=== PATIENT | male | born 1965 | race Caucasian/White ===

== ENCOUNTER 2016-08-28 20:18 | Emergency (ER) | payer BC, OTHER ==
[~2016-08-28] VITALS: Ht 180.3 cm; Wt 72.0 kg
[2016-08-28 20:26] VITALS: BP 155/93; PULSE 80; RESP 18; TEMP 98.8; O2SAT 99
--- NOTE | 2016-08-28 21:36 | PD ---
HPI Chief Complaint: Edema Time Seen by Provider: 21:29 Travel History International Travel<30 days: No Contact w/Intl Traveler<30days: No Traveled to known affect area: No History of Present Illness HPI Patient 50-year-old male presents with right ankle swelling. Patient states that he recently took a trip to [facility] and has been on his feet quite a lot recently but after he got back is been doing nothing but laying on the couch. He states that he is here because some or swelling in the past and his mother let the diagnosis of DVT. Patient has not had a DVT himself in the past. Denies any fever denies any history of heart kidney lung or liver problems. Patient denies any history of trauma to his ankle other than walking on it [place]. He denies a history of cancer denies a history of shortness of breath PFSH Past Medical History High Cholesterol: Yes Diminished Hearing: No Hypertension: Yes Kidney Stones: Yes (8 YEARS AGO) Social History Alcohol Use: Yes (DRINK/WEEK) Tobacco Use: No Substance Use: No Allergies-Medications (Allergen,Severity, Reaction): Coded Allergies: No Known Allergies (Verified , 08/28/16) Reported Meds & Prescriptions Reported Meds & Active Scripts Active No Active Prescriptions or Reported Medications Review of Systems Except as stated in HPI: all other systems reviewed are Neg Physical Exam Narrative GENERAL: Well-nourished, well-developed patient. SKIN: No erythema no rash. HEAD: Normocephalic. EYES: No scleral icterus. No injection or drainage. NECK: Supple, trachea midline. No JVD or lymphadenopathy. CARDIOVASCULAR: Regular rate and rhythm without murmurs, gallops, or rubs. RESPIRATORY: Breath sounds equal bilaterally. No accessory muscle use. GASTROINTESTINAL: Abdomen soft, non-tender, nondistended. MUSCULOSKELETAL: No cyanosis, there is minimal edema of the anterior ankle on the right side as well as lateral malleolus. There is no tenderness of the ankle. There is no tenderness at the knee no tenderness of the foot. Homans sign is negative. No cordlike structures felt. Full nontender range of motion was exhibited in all lower extremity joints, he ambulated with a narrow gait without pain.. BACK: Nontender without obvious deformity. No CVA tenderness. Data Data Last Documented VS Vital Signs Date Time Temp Pulse Resp B/P Pulse Ox O2 Delivery O2 Flow Rate FiO2 08/28/16 23:11 82 144/72 99 08/28/16 20:26 98.8 18 Orders Us Leg Venous Doppler Bilat (08/28/16 21:29) MDM Medical Decision Making Medical Screen Exam Complete: Yes Emergency Medical Condition: Yes Differential Diagnosis Fracture excluded by [place] ankle rules, CHF highly unlikely, acute renal failure highly unlikely, acute liver failure highly unlikely, dependent edema, DVT seems unlikely. Narrative Course Last 24 hours Impressions Lower Extremity Ultrasound 08/28/162128 Signed Impressions: Service Date/Time: Sunday, August 28, 2016 21:42 - CONCLUSION: No DVT in either lower extremity. Sukhdeep Fernandez MD Discuss results with the patient and symptomatically management. Discussed need follow-up with a primary care physician. There is no indication for further emergent workup at this time. He stable for discharge. Diagnosis Primary Impression: Ankle edema Scripts No Active Prescriptions or Reported Meds Disposition: 01 DISCHARGE HOME Condition: Stable Reza Suarez MD August 28, 2016 21:36
--- NOTE | 2016-08-28 22:39 | RADHPO ---
EXAM DATE/TIME: 08/28/2016 21:42 [facility] COMPARISON: No previous studies available for comparison. INDICATIONS : Bilateral leg swelling. MEDICAL HISTORY : Hypercholesterolemia. Hypertension. Renal calculi. SURGICAL HISTORY : None. ENCOUNTER: Initial ACUITY: 1 day PAIN SCORE: 1/10 LOCATION: Bilateral legs. TECHNIQUE: Venous ultrasound of the left and right leg was performed from the inguinal ligament to the proximal calf. Real-time, color Doppler and spectral tracing, compression and augmentation techniques were us ed. FINDINGS: RIGHT LEG: There is normal compressibility of the deep venous system from the inguinal region to the proximal ca lf. No echogenic clot is seen in the lumen of the common femoral, femoral, popliteal, and posterior tibial veins. There is a normal response of the venous system to proximal and distal augmentation an d respiration. LEFT LEG: There is normal compressibility of the deep venous system from the inguinal region to the proximal ca lf. No echogenic clot is seen in the lumen of the common femoral, femoral, popliteal, and posterior tibial veins. There is a normal response of the venous system to proximal and distal augmentation an d respiration. CONCLUSION: No DVT in either lower extremity. Sukhdeep Fernandez MD on August 28, 2016 at 22:37 Board Certified Radiologist. This report was verified electronically.
[2016-08-28 23:11] VITALS: BP 144/72
== END 2016-08-28 23:13 | disposition home or self-care (01) ==
LOC: PHED 20:18
DX: R60.9 Edema, unspecified (principal); E78.00 Pure hypercholesterolemia, unspecified; I10 Essential (primary) hypertension
CPT/HCPCS: 93970

== ENCOUNTER 2017-01-19 08:47 | Emergency (ER) | payer OTHER ==
[~2017-01-19] VITALS: Ht 180.3 cm; Wt 70.1 kg
[2017-01-19 08:50] VITALS: BP 169/95; PULSE 70; RESP 16; TEMP 98.6; O2SAT 98
--- NOTE | 2017-01-19 09:11 | PD ---
HPI Chief Complaint: Flank/Kidney Pain Time Seen by Provider: 09:02 Travel History International Travel<30 days: No Contact w/Intl Traveler<30days: No Traveled to known affect area: No History of Present Illness HPI This 51-year-old male is complaining of left flank pain. The pain started Sunday night, it is now Sunday morning. He has been quite severe at times. It does come and go. He has a history of kidney stones says the pain is similar to the pain has kidney stones. His been confined to the left flank. There is no testicular pain. He has not had dysuria. He took some Advil with minimal response. He also tried some tramadol which helped a little bit. He says he had kidney stones about 15 years ago which he passed uneventfully [facility] Past Medical History High Cholesterol: Yes Diminished Hearing: No Hypertension: Yes Kidney Stones: Yes Immunizations Current: Yes Past Surgical History Surgical History: No Previous Surgery Social History Alcohol Use: Yes (RARE) Tobacco Use: No (FORMER) Substance Use: No Allergies-Medications (Allergen,Severity, Reaction): Coded Allergies: No Known Allergies (Verified , 01/19/17) Reported Meds & Prescriptions Reported Meds & Active Scripts Active No Active Prescriptions or Reported Medications Review of Systems General / Constitutional: No: Fever, Chills Eyes: No: Diploplia, Blurred Vision HENT: No: Headaches, Vertigo Cardiovascular: No: Chest Pain or Discomfort, Palpitations Respiratory: No: Cough, Shortness of Breath Gastrointestinal: No: Nausea, Vomiting, Diarrhea Genitourinary: Positive: Flank Pain, No: Hematuria Musculoskeletal: No: Myalgias, Arthralgias Skin: No Rash, No Itching Neurologic: No: Weakness Endocrine: No: Heat Intolerance, Cold Intolerance Hematologic/Lymphatic: No: Easy Bruising Physical Exam Narrative GENERAL: Well-developed male. He is uncomfortable with pain SKIN: Focused skin assessment warm/dry. HEAD: Atraumatic. Normocephalic. EYES: Pupils equal and round. No scleral icterus. No injection or drainage. ENT: No nasal bleeding or discharge. Mucous membranes pink and moist. NECK: Trachea midline. No JVD. CARDIOVASCULAR: Regular rate and rhythm. No murmur appreciated. RESPIRATORY: No accessory muscle use. Clear to auscultation. Breath sounds equal bilaterally. GASTROINTESTINAL: Abdomen soft, non-tender, nondistended. Hepatic and splenic margins not palpable. There is some left CVA tenderness MUSCULOSKELETAL: No obvious deformities. No clubbing. No cyanosis. No edema. NEUROLOGICAL: Awake and alert. No obvious cranial nerve deficits. Motor grossly within normal limits. Normal speech. PSYCHIATRIC: Appropriate mood and affect; insight and judgment normal. Data Data Last Documented VS Vital Signs Date Time Temp Pulse Resp B/P (MAP) Pulse Ox O2 Delivery O2 Flow Rate FiO2 01/19/17 10:11 16 01/19/17 08:50 98.6 70 169/95 (119) 98 Orders Orders Basic Metabolic Panel (Bmp) (01/19/17 09:07) Complete Blood Count With Diff (01/19/17 09:07) Urinalysis - C+S If Indicated (01/19/17 09:07) Ct Abd/Pel W/O Iv Contrast (01/19/17 09:07) Ketorolac Inj (Toradol Inj) (01/19/17 09:15) Ondansetron Inj (Zofran Inj) (01/19/17 09:15) Sodium Chloride 0.9% Flush (Ns Flush) (01/19/17 09:15) Hydromorphone Pf Inj (Dilaudid Pf Inj) (01/19/17 09:15) Sodium Chlor 0.9% 1000 Ml Inj (Ns 1000 M (01/19/17 09:15) Labs Laboratory Tests Test 01/19/17 09:10 01/19/17 09:20 White Blood Count 7.8 TH/MM3 Red Blood Count 5.57 MIL/MM3 Hemoglobin 16.3 GM/DL Hematocrit 49.2 % Mean Corpuscular Volume 88.2 FL Mean Corpuscular Hemoglobin 29.2 PG Mean Corpuscular Hemoglobin Concent 33.1 % Red Cell Distribution Width 12.6 % Platelet Count 337 TH/MM3 Mean Platelet Volume 7.6 FL Neutrophils (%) (Auto) 67.6 % Lymphocytes (%) (Auto) 21.8 % Monocytes (%) (Auto) 6.5 % Eosinophils (%) (Auto) 2.0 % Basophils (%) (Auto) 2.1 % Neutrophils # (Auto) 5.2 TH/MM3 Lymphocytes # (Auto) 1.7 TH/MM3 Monocytes # (Auto) 0.5 TH/MM3 Eosinophils # (Auto) 0.2 TH/MM3 Basophils # (Auto) 0.2 TH/MM3 CBC Comment DIFF FINAL Differential Comment Blood Urea Nitrogen 12 MG/DL Creatinine 0.95 MG/DL Random Glucose 108 MG/DL Calcium Level 9.5 MG/DL Sodium Level 135 MEQ/L Potassium Level 3.8 MEQ/L Chloride Level 100 MEQ/L Carbon Dioxide Level 27.2 MEQ/L Anion Gap 8 MEQ/L Estimat Glomerular Filtration Rate 84 ML/MIN Urine Collection Type CLEAN CATCH Urine Color YELLOW Urine Turbidity CLEAR Urine pH 6.0 Urine Specific [place] 1.014 Urine Protein NEG mg/dL Urine Glucose (UA) NEG mg/dL Urine Ketones NEG mg/dL Urine Occult Blood LARGE Urine Nitrite NEG Urine Bilirubin NEG Urine Leukocyte Esterase NEG Urine RBC 25-49 /hpf Urine WBC 0-2 /hpf Urine Squamous Epithelial Cells 0-5 /hpf Microscopic Urinalysis Comment CULT NOT INDICATED Urine Collection Time 09:20 MDM Medical Decision Making Medical Screen Exam Complete: Yes Emergency Medical Condition: Yes Medical Record Reviewed: Yes Differential Diagnosis Differential includes renal colic, musculoskeletal pain, UTI Narrative Course Urinalysis does show microscopic hematuria. CT scan shows a 4 x 7 millimeters stone in the left mid ureter with obstruction. Patient was given a milligram Dilaudid IV and Toradol and had good relief of his pain. He'll be released with prescription for Percocet and Flomax. He is to strain all urine and follow -up with urology if the stone does not pass Diagnosis Primary Impression: Left ureteral calculus Scripts Tamsulosin (Flomax) 0.4 Mg Cap 0.4 MG PO HS for Manage Prostate Problems for 14 Days, #30 CAP 0 Refills Prov: Dm Mario MD 01/19/17 Oxycodone-Acetaminophen (Percocet) 10-325 mg Tab 1 TAB PO Q4H Y for PAIN, #20 TAB 0 Refills Prov: Dm Mario MD 01/19/17 Disposition: 01 DISCHARGE HOME Condition: Stable Dm Mario MD Jan 19, 2017 09:11
[2017-01-19] MEDS ORDERED: KETOROLAC TROMETHAMINE 30 MG/ML (IVP) VIAL IVP ONE (09:15)
[2017-01-19] MEDS ORDERED: SODIUM CHLOR 0.9% 1000 ML INJ 1,000 ML IV ONE (09:15)
[2017-01-19] MEDS ORDERED: ONDANSETRON HCL 4 MG/2 ML VIAL IVP ONE (09:15)
[2017-01-19] MEDS ORDERED: SODIUM CHLORIDE 0.9% FLUSH 10 ML FLUSH IVF PRN (09:15)
[2017-01-19] MEDS ORDERED: HYDROmorphone HCL PF 1 MG/ML VIAL IVS ONE (09:15)
[2017-01-19 09:29] LABS: AUTOMATED NEUTROPHIL # 5.2 TH/MM3 (1.8-7.7); BASOPHIL # 0.2 TH/MM3 (0-0.2); BASOPHIL % 2.1 % (0.0-2.0); EOSINOPHIL # 0.2 TH/MM3 (0-0.4); HEMATOCRIT 49.2 % (39.0-51.0); HEMO FLAGS DIFF FINAL; LYMPH % 21.8 % (9.0-44.0); LYMPHOCYTE # 1.7 TH/MM3 (1.0-4.8); MEAN CELL VOLUME 88.2 FL (80.0-100.0); MEAN CORPUSCULAR HEMOGLOBIN 29.2 PG (27.0-34.0); MEAN CORPUSCULAR HGB CONC 33.1 % (32.0-36.0); MONO % 6.5 % (0.0-8.0); NEUT % 67.6 % (16.0-70.0); PLATELET COUNT 337 TH/MM3 (150-450); RED BLOOD COUNT 5.57 MIL/MM3 (4.50-5.90); RED CELL DISTRIBUTION WIDTH 12.6 % (11.6-17.2); WHITE BLOOD COUNT 7.8 TH/MM3 (4.0-11.0)
[2017-01-19 09:30] VITALS: BP 150/95; PULSE 75; RESP 16; O2SAT 97
[2017-01-19 09:33] LABS: BLOOD, URINE LARGE (NEG); GLUCOSE,URINE NEG (NEG); KETONE, URINE NEG (NEG); NITRITE,URINE NEG (NEG)
[2017-01-19 09:40] LABS: METHOD OF COLLECTION CLEAN CATCH; URINE COLOR YELLOW (YELLW/STRAW)
[2017-01-19 09:41] LABS: COMMENT (UR) CULT NOT INDICATED; CULTURE IF INDICATED CULT NOT INDICATED; SQUAMOUS EPITHELIAL CELL URINE 0-5 /hpf (0-5); WBC, URINE 0-2 /hpf (0-5)
[2017-01-19 09:52] LABS: BICARBONATE 27.2 MEQ/L (21.0-32.0)
[2017-01-19 09:56] LABS: POTASSIUM 3.8 MEQ/L (3.5-5.1)
--- NOTE | 2017-01-19 10:01 | RADRPT ---
EXAM DATE/TIME: 01/19/2017 09:42 [facility] COMPARISON: No previous studies available for comparison. INDICATIONS : Left flank pain. ORAL CONTRAST: No oral contrast ingested. RADIATION DOSE: 8.68 CTDIvol (mGy) MEDICAL HISTORY : Hypercholesterolemia. Hypertension. Renal calculi. SURGICAL HISTORY : None. ENCOUNTER: Initial ACUITY: 3 days PAIN SCALE: 9/10 LOCATION: Left flank TECHNIQUE: Volumetric scanning of the abdomen and pelvis was performed. Using automated exposure control and ad justment of the mA and/or kV according to patient size, radiation dose was kept as low as reasonably achievable to obtain optimal diagnostic quality images. DICOM format image data is available electro nically for review and comparison. FINDINGS: LOWER LUNGS: The visualized lower lungs are clear. LIVER: Homogeneous density without lesion. There is no dilation of the biliary tree. No calcified gallston es. SPLEEN: Normal size without lesion. PANCREAS: Within normal limits. KIDNEYS: [id number] left-sided hydronephrosis and hydroureter with a 4 x 7 mm calcified calculus noted i n the mid left ureter. No additional radiopaque renal calculi are noted. Right kidney is within raghu l limits. ADRENAL GLANDS: Within normal limits. VASCULAR: There is no aortic aneurysm. BOWEL/MESENTERY: Mild to moderate sigmoid diverticulosis without definitive inflammatory change to suggest diverticuli tis. Bowel is otherwise unremarkable. No evidence for obstruction. No free air or free fluid. ABDOMINAL WALL: Within normal limits. RETROPERITONEUM: There is no lymphadenopathy. BLADDER: Mildly distended. No radiopaque bladder calculi. REPRODUCTIVE: Within normal limits. INGUINAL: There is no lymphadenopathy or hernia. MUSCULOSKELETAL: Within normal limits for patient age. CONCLUSION: 1. 4 x 7 mm calcified calculus in the mid left ureter with resultant mild to moderate left-sided hydr oureteronephrosis. 2. Sigmoid diverticulosis. Masood Dean MD on January 19, 2017 at 9:55 Board Certified Radiologist. This report was verified electronically.
[2017-01-19 10:05] VITALS: BP 127/81; PULSE 62; RESP 16; O2SAT 97
[2017-01-19 10:11] VITALS: RESP 16
[2017-01-19] MEDS ORDERED: TAMS5CAP PO (10:17)
[2017-01-19] MEDS ORDERED: PERC10TA27 PO (10:17)
== END 2017-01-19 10:38 | disposition home or self-care (01) ==
LOC: PHED 08:47
DX: N13.2 Hydronephrosis with renal and ureteral calculous obstruction (principal); K57.30 Diverticulosis of large intestine without perforation or abscess without bleeding; E78.00 Pure hypercholesterolemia, unspecified; I10 Essential (primary) hypertension; Z87.442 Personal history of urinary calculi; Z87.891 Personal history of nicotine dependence
CPT/HCPCS: 74176; 80048; 81001; 85025; 96361; 96374; 96375; 99285; J1170; J1885; J2405; J7030

== ENCOUNTER 2017-01-31 01:27 | Emergency (ER) | payer OTHER ==
[~2017-01-31] VITALS: Ht 180.3 cm; Wt 69.8 kg
[~2017-01-31 01:27] MED LIST: PERC10TA27 PO; TAMS5CAP PO
[2017-01-31 01:30] VITALS: BP 177/94; PULSE 75; RESP 16; TEMP 97.5; O2SAT 97
[2017-01-31 01:47] VITALS: BP 177/94; PULSE 75; RESP 16; TEMP 97.5; O2SAT 97
[2017-01-31] MEDS ORDERED: ONDANSETRON HCL 4 MG/2 ML VIAL IV PUSH ONE (02:00)
[2017-01-31] MEDS ORDERED: SODIUM CHLOR 0.9% 1000 ML INJ 1,000 ML IV SCH (02:00)
[2017-01-31] MEDS ORDERED: SODIUM CHLORIDE 0.9% FLUSH 10 ML FLUSH IVF PRN (02:00)
[2017-01-31] MEDS ORDERED: HYDROmorphone HCL PF 1 MG/ML VIAL IV PUSH ONE (02:00)
[2017-01-31] MEDS ORDERED: KETOROLAC TROMETHAMINE 30 MG/ML (IVP) VIAL IV PUSH ONE (02:00)
--- NOTE | 2017-01-31 02:00 | PD ---
HPI Chief Complaint: Flank/Kidney Pain Time Seen by Provider: 01:55 Travel History International Travel<30 days: No Contact w/Intl Traveler<30days: No Traveled to known affect area: No History of Present Illness HPI 51-year-old male presents to the emergency department for complaint of left pain pain and recurrent pain associated with kidney stone. Patient states she was seen here partially one week ago and diagnosed with a left-sided kidney stone. Patient was placed on Percocet and Flomax. Patient states at 9 PM he took a dose of Percocet and Flomax and has continued to have ongoing worsening pain. Patient's had nausea but denies any vomiting hematemesis coffee-ground emesis and no fever or chills. He should rates pain as 9/10 in intensity. PFSH Past Medical History Narrative Medical Hypertension dyslipidemia kidney stone alcohol use; nursing notes reviewed High Cholesterol: Yes Diminished Hearing: No Hypertension: Yes Kidney Stones: Yes Immunizations Current: Yes Tetanus Vaccination: < 5 Years Influenza Vaccination: No Past Surgical History Surgical History: No Previous Surgery Social History Alcohol Use: Yes (RARE) Tobacco Use: No (FORMER) Substance Use: No Allergies-Medications (Allergen,Severity, Reaction): Coded Allergies: No Known Allergies (Verified , 01/31/17) Reported Meds & Prescriptions Reported Meds & Active Scripts Active Flomax (Tamsulosin HCl) 0.4 Mg Cap 0.4 Mg PO HS 14 Days Percocet (Oxycodone-Acetaminophen) 10-325 mg Tab 1 Tab PO Q4H PRN Review of Systems Except as stated in HPI: all other systems reviewed are Neg General / Constitutional: No: Fever HENT: No: Congestion Cardiovascular: No: Chest Pain or Discomfort Respiratory: No: Shortness of Breath Gastrointestinal: No: Abdominal Pain Genitourinary: Positive: Hematuria, Flank Pain Musculoskeletal: No: Pain Skin: No Rash Neurologic: No: Weakness Psychiatric: No: Anxiety Hematologic/Lymphatic: No: Lymph Node Enlargement Physical Exam Narrative GENERAL: Well-developed well-nourished male in obvious discomfort no respiratory distress SKIN: Warm and dry. HEAD: Normocephalic. EYES: No scleral icterus. No injection or drainage. NECK: Supple, trachea midline. No JVD or lymphadenopathy. CARDIOVASCULAR: Regular rate and rhythm without murmurs, gallops, or rubs. RESPIRATORY: Breath sounds equal bilaterally. No accessory muscle use. GASTROINTESTINAL: Abdomen soft, non-tender, nondistended. MUSCULOSKELETAL: No cyanosis, or edema. BACK: Nontender without obvious deformity. Left-sided CVA tenderness. Data Data Last Documented VS Vital Signs Date Time Temp Pulse Resp B/P (MAP) Pulse Ox O2 Delivery O2 Flow Rate FiO2 01/31/17 03:44 74 16 118/68 (85) 96 Room Air 01/31/17 01:47 97.5 Orders Orders Complete Blood Count With Diff (01/31/17 01:55) Basic Metabolic Panel (Bmp) (01/31/17 01:55) Urinalysis - C+S If Indicated (01/31/17 01:55) Ecg Monitoring (01/31/17 01:55) Iv Access Insert/Monitor (01/31/17 01:55) Ondansetron Inj (Zofran Inj) (01/31/17 02:00) Sodium Chloride 0.9% Flush (Ns Flush) (01/31/17 02:00) Ketorolac Inj (Toradol Inj) (01/31/17 02:00) Hydromorphone Pf Inj (Dilaudid Pf Inj) (01/31/17 02:00) Sodium Chlor 0.9% 1000 Ml Inj (Ns 1000 M (01/31/17 02:00) Ct Abd/Pel W/O Iv Contrast (01/31/17 ) Labs Laboratory Tests Test 01/31/17 02:02 White Blood Count 10.5 TH/MM3 Red Blood Count 5.14 MIL/MM3 Hemoglobin 15.3 GM/DL Hematocrit 45.9 % Mean Corpuscular Volume 89.3 FL Mean Corpuscular Hemoglobin 29.8 PG Mean Corpuscular Hemoglobin Concent 33.3 % Red Cell Distribution Width 12.5 % Platelet Count 347 TH/MM3 Mean Platelet Volume 8.0 FL Neutrophils (%) (Auto) 74.0 % Lymphocytes (%) (Auto) 17.9 % Monocytes (%) (Auto) 4.8 % Eosinophils (%) (Auto) 2.7 % Basophils (%) (Auto) 0.6 % Neutrophils # (Auto) 7.7 TH/MM3 Lymphocytes # (Auto) 1.9 TH/MM3 Monocytes # (Auto) 0.5 TH/MM3 Eosinophils # (Auto) 0.3 TH/MM3 Basophils # (Auto) 0.1 TH/MM3 CBC Comment AUTO DIFF Differential Comment AUTO DIFF CONFIRMED Platelet Estimate NORMAL Platelet Morphology Comment CLUMPED Red Cell Morphology Comment NORMAL Urine Color YELLOW Urine Turbidity CLEAR Urine pH 6.0 Urine Specific [place] 1.007 Urine Protein NEG mg/dL Urine Glucose (UA) NEG mg/dL Urine Ketones NEG mg/dL Urine Occult Blood MOD Urine Nitrite NEG Urine Bilirubin NEG Urine Leukocyte Esterase NEG Urine RBC 0-3 /hpf Urine WBC 0-2 /hpf Urine Squamous Epithelial Cells 0-5 /hpf Urine Hyaline Casts 0-2 /lpf Urine Mucus FEW /lpf Microscopic Urinalysis Comment CULT NOT INDICATED Blood Urea Nitrogen 12 MG/DL Creatinine 1.20 MG/DL Random Glucose 103 MG/DL Calcium Level 9.8 MG/DL Sodium Level 136 MEQ/L Potassium Level 3.8 MEQ/L Chloride Level 97 MEQ/L Carbon Dioxide Level 30.3 MEQ/L Anion Gap 9 MEQ/L Estimat Glomerular Filtration Rate 64 ML/MIN MDM Medical Decision Making Medical Screen Exam Complete: Yes Emergency Medical Condition: Yes Medical Record Reviewed: Yes Interpretation(s) CT ABD/PEL: CONCLUSION: 1. Distal migration of the previously seen stone now to the left uterovesical junction with mild hydronephrosis Kenny Zhou MD on January 31, 2017 at 3:44 Board Certified Radiologist. This report was verified electronically. Urinalysis: blood, culture not indicated Vital Signs Date Time Temp Pulse Resp B/P (MAP) Pulse Ox O2 Delivery O2 Flow Rate FiO2 01/31/17 03:44 74 16 118/68 (85) 96 Room Air 01/31/17 02:42 16 01/31/17 02:42 16 01/31/17 02:22 76 18 142/91 (108) 95 Room Air 01/31/17 01:47 97.5 75 16 177/94 (121) 97 01/31/17 01:30 97.5 75 16 177/94 (121) 97 CBC & BMP Diagram 01/31/17 02:02 Calcium Level 9.8 Differential Diagnosis Renal colic, obstructive uropathy, UTI Narrative Course IV access obtained specimens collected and sent for resulting patient administered Dilaudid 1 mg IV Zofran 4 mg IV Toradol 30 mg IV and normal saline 100 cc an hour Patient clinically improved although does complain that pain of presentation requiring continuous Percocet every 3 hours and more severe than initial presentation Patient with unproven of symptoms ongoing pain therefore proceed with CT abdomen and pelvis aware CT was done 2 weeks ago however stone was 7 mm x 4 mm and may have wedged in the horizontal plane perpendicular to the long axis of the ureter causing significant obstruction. CT abdomen and pelvis kidney stone protocol shows that stone has moved to the distal ureter near the UVJ. Patient now with pain well controlled and will be stable for outpatient management and follow-up with Dr. Christian as scheduled on Sunday Diagnosis Primary Impression: Renal colic Additional Impression: Hydronephrosis Qualified Codes: N13.2 - Hydronephrosis with renal and ureteral calculous obstruction Referrals: Urologist 2 days Patient Instructions: General Instructions Additional Instructions: Increase fluid hydration Continue pain medication as prescribed as needed Follow-up with urologist as planned Return to the emergency department for any concerns or change in condition Med/Other Pt SpecificInfo: Prescription(s) given Scripts Oxycodone-Acetaminophen (Percocet) 10-325 mg Tab 1 TAB PO Q4H Y for PAIN, #7 TAB 0 Refills Prov: Vania Barraza MD 01/31/17 Disposition: 01 DISCHARGE HOME Condition: Stable Vania Barraza MD Jan 31, 2017 02:00
[2017-01-31 02:12] LABS: AUTOMATED NEUTROPHIL # 7.7 TH/MM3 (1.8-7.7); BASOPHIL # 0.1 TH/MM3 (0-0.2); BASOPHIL % 0.6 % (0.0-2.0); EOSINOPHIL # 0.3 TH/MM3 (0-0.4); EOSINOPHIL % 2.7 % (0.0-4.0); HEMATOCRIT 45.9 % (39.0-51.0); LYMPH % 17.9 % (9.0-44.0); LYMPHOCYTE # 1.9 TH/MM3 (1.0-4.8); MEAN CELL VOLUME 89.3 FL (80.0-100.0); MEAN CORPUSCULAR HEMOGLOBIN 29.8 PG (27.0-34.0); MEAN CORPUSCULAR HGB CONC 33.3 % (32.0-36.0); MONO % 4.8 % (0.0-8.0); PLATELET COUNT 347 TH/MM3 (150-450); RED BLOOD COUNT 5.14 MIL/MM3 (4.50-5.90); RED CELL DISTRIBUTION WIDTH 12.5 % (11.6-17.2); WHITE BLOOD COUNT 10.5 TH/MM3 (4.0-11.0)
[2017-01-31 02:14] LABS: BLOOD, URINE MOD (NEG); GLUCOSE,URINE NEG (NEG); KETONE, URINE NEG (NEG); NITRITE,URINE NEG (NEG)
[2017-01-31 02:19] LABS: URINE COLOR YELLOW (YELLW/STRAW)
[2017-01-31 02:20] LABS: MUCUS URINE FEW /lpf (OCC); RBC, URINE 0-3 /hpf (0-3); SQUAMOUS EPITHELIAL CELL URINE 0-5 /hpf (0-5)
[2017-01-31 02:21] LABS: COMMENT (UR) CULT NOT INDICATED; CULTURE IF INDICATED CULT NOT INDICATED; HYALINE CAST, URINE 0-2 /lpf (RARE); POTASSIUM 3.8 MEQ/L (3.5-5.1); WBC, URINE 0-2 /hpf (0-5)
[2017-01-31 02:22] VITALS: BP 142/91; PULSE 76; RESP 18; O2SAT 95
[2017-01-31 02:23] LABS: HEMO FLAGS AUTO DIFF
[2017-01-31 02:24] LABS: BICARBONATE 30.3 MEQ/L (21.0-32.0)
[2017-01-31 02:43] LABS: PLATELET ESTIMATE SMEAR NORMAL (NORMAL); PLATELET MORPHOLOGY CLUMPED (NORMAL); SCAN/DIFF AUTO DIFF CONFIRMED
[2017-01-31 03:44] VITALS: BP 118/68; PULSE 74; RESP 16; O2SAT 96
--- NOTE | 2017-01-31 03:48 | RADRPT ---
EXAM DATE/TIME: 01/31/2017 03:10 [facility] COMPARISON: CT ABDOMEN & PELVIS W/O CONTRAST, January 19, 2017, 9:42. INDICATIONS : Left flank pain. ORAL CONTRAST: No oral contrast ingested. RADIATION DOSE: 9.79 CTDIvol (mGy) MEDICAL HISTORY : None SURGICAL HISTORY : None. ENCOUNTER: Initial ACUITY: 1 day PAIN SCALE: 2/10 LOCATION: Left flank TECHNIQUE: Volumetric scanning of the abdomen and pelvis was performed. Using automated exposure control and ad justment of the mA and/or kV according to patient size, radiation dose was kept as low as reasonably achievable to obtain optimal diagnostic quality images. DICOM format image data is available electro nically for review and comparison. FINDINGS: Examination of the lung bases demonstrates no abnormality. No pleural fluid is identified. No pulmona ry nodules are present. The liver and spleen are normal in size and no focal defects are identified. The gallbladder and pancreas are unremarkable. No intrahepatic or extrahepatic ductal dilatation is s een. The adrenal glands are unremarkable. The right kidney is unremarkable. There is left hydronephro sis and hydroureter with the stone migrating distally to the ureterovesical junction. Examination of the pelvis demonstrates no evidence of free fluid or pelvic mass. No abnormally enlarg ed inguinal or retroperitoneal lymph nodes are present. The bladder is unremarkable. There is diverti culosis without evidence of diverticulitis. The prostate gland is enlarged impinging on the bladder b ase. CONCLUSION: 1. Distal migration of the previously seen stone now to the left uterovesical junction with mild hydr onephrosis Kenny Zhou MD on January 31, 2017 at 3:44 Board Certified Radiologist. This report was verified electronically.
[2017-01-31] MEDS ORDERED: PERC10TA27 PO (03:57)
== END 2017-01-31 04:28 | disposition home or self-care (01) ==
LOC: PHED 01:27
DX: N13.2 Hydronephrosis with renal and ureteral calculous obstruction (principal)
CPT/HCPCS: 74176; 80048; 81001; 85025; 96361; 96374; 96375; 99285; J1170; J1885; J2405; J7030

== ENCOUNTER 2017-03-11 12:03 | Emergency (ER) | payer OTHER ==
[~2017-03-11] VITALS: Ht 180.3 cm; Wt 70.0 kg
[2017-03-11 12:46] VITALS: BP 142/88; PULSE 64; RESP 18; TEMP 98.5; O2SAT 100
[2017-03-11 13:11] LABS: BLOOD, URINE NEG (NEG); GLUCOSE,URINE NEG (NEG); KETONE, URINE NEG (NEG); NITRITE,URINE NEG (NEG)
[2017-03-11 13:22] LABS: COMMENT (UR) CULT NOT INDICATED; CULTURE IF INDICATED CULT NOT INDICATED; METHOD OF COLLECTION CLEAN CATCH; SQUAMOUS EPITHELIAL CELL URINE 0-5 /hpf (0-5); URINE COLOR YELLOW (YELLW/STRAW)
[2017-03-11] MEDS ORDERED: CIPR-9 PO (15:04)
[2017-03-11] MEDS ORDERED: METR-1 PO (15:04)
[2017-03-11] MEDS ORDERED: HYDR-3516 PO (15:04)
--- NOTE | 2017-03-11 15:04 | PD ---
HPI Chief Complaint: Abdominal Pain Time Seen by Provider: 15:00 Travel History International Travel<30 days: No Contact w/Intl Traveler<30days: No Traveled to known affect area: No History of Present Illness HPI Patient presents with complaints of left lower quadrant pain similar to previous episode of diverticulitis. Denies any nausea vomiting or diarrhea or fever. Reports normal stools without blood. No urinary symptoms. Symptom onset 2-3 days. History of diverticulosis by imaging. No previous colonoscopy. PFSH Past Medical History High Cholesterol: Yes Diminished Hearing: No Diverticulitis: Yes Hypertension: Yes Kidney Stones: Yes Immunizations Current: Yes Past Surgical History Surgical History: No Previous Surgery Social History Alcohol Use: Yes (RARE) Tobacco Use: No (FORMER) Substance Use: No Allergies-Medications (Allergen,Severity, Reaction): Coded Allergies: No Known Allergies (Verified Adverse Reaction, Unknown, 03/11/17) Reported Meds & Prescriptions Reported Meds & Active Scripts Active No Active Prescriptions or Reported Medications Review of Systems General / Constitutional: No: Fever Eyes: No: Visual changes HENT: No: Headaches Cardiovascular: No: Chest Pain or Discomfort Respiratory: No: Shortness of Breath Gastrointestinal: Positive: Abdominal Pain Genitourinary: No: Dysuria Musculoskeletal: No: Pain Skin: No Rash Neurologic: No: Weakness Psychiatric: No: Depression Endocrine: No: Polydipsia Hematologic/Lymphatic: No: Easy Bruising Physical Exam Narrative GENERAL: Well-nourished, well-developed patient. SKIN: Focused skin assessment warm/dry. HEAD: Normocephalic. EYES: No scleral icterus. No injection or drainage. NECK: Supple, trachea midline. No JVD or lymphadenopathy. CARDIOVASCULAR: Regular rate and rhythm without murmurs, gallops, or rubs. RESPIRATORY: Breath sounds equal bilaterally. No accessory muscle use. GASTROINTESTINAL: Abdomen soft, diffusely tender left lower quadrant, nondistended. Mild guarding MUSCULOSKELETAL: No cyanosis, or edema. BACK: Nontender without obvious deformity. No CVA tenderness. Data Data Last Documented VS Vital Signs Date Time Temp Pulse Resp B/P (MAP) Pulse Ox O2 Delivery O2 Flow Rate FiO2 03/11/17 12:46 98.5 64 18 142/88 (106) 100 Orders Orders Urinalysis - C+S If Indicated (03/11/17 12:10) Labs Laboratory Tests Test 03/11/17 12:50 Urine Collection Type CLEAN CATCH Urine Color YELLOW Urine Turbidity CLEAR Urine pH 6.0 Urine Specific [place] 1.010 Urine Protein NEG mg/dL Urine Glucose (UA) NEG mg/dL Urine Ketones NEG mg/dL Urine Occult Blood NEG Urine Nitrite NEG Urine Bilirubin NEG Urine Leukocyte Esterase NEG Urine Squamous Epithelial Cells 0-5 /hpf Microscopic Urinalysis Comment CULT NOT INDICATED Urine Collection Time 1250 MDM Medical Decision Making Medical Screen Exam Complete: Yes Emergency Medical Condition: Yes Differential Diagnosis Diverticulitis, small bowel obstruction, ischemic bowel Narrative Course Assessment and plan discussed with patient at bedside. Diagnosis Primary Impression: Diverticulitis Patient Instructions: General Instructions Additional Instructions: Rest and fluids. Encouraged a high fiber diet. Medications as prescribed. Follow-up with PCP. Return to emergency room with any onset of new symptoms. Med/Other Pt SpecificInfo: Prescription(s) given Scripts Hydrocodone-Acetaminophen (Hydrocodone-Acetaminophen) 5-325 mg Tab 0.5-1 TAB PO Q4H Y for PAIN, #15 TAB 0 Refills Prov: Anup Pearce MD 03/11/17 Metronidazole (Flagyl) 500 Mg Tab 500 MG PO BID for Infection for 10 Days, #20 TAB 0 Refills Prov: Anup Pearce MD 03/11/17 Ciprofloxacin (Cipro) 500 Mg Tab 500 MG PO BID for Infection for 7 Days, #14 TAB 0 Refills Prov: Anup Pearce MD 03/11/17 Disposition: 01 DISCHARGE HOME Condition: Good Anup Pearce MD Mar 11, 2017 15:04
[2017-03-11 15:14] VITALS: BP 140/84
== END 2017-03-11 15:22 | disposition home or self-care (01) ==
LOC: PHED 12:03
DX: K57.92 Diverticulitis of intestine, part unspecified, without perforation or abscess without bleeding (principal)
CPT/HCPCS: 81001; 99284